=== PATIENT | female | born 1965 | race Caucasian/White ===

== ENCOUNTER 2024-07-17 14:26 | Emergency (ER) | payer OTHER, SELFPAY ==
[2024-07-17 14:27] VITALS: BP 142/85
[2024-07-17 15:08] VITALS: BP 131/82
[2024-07-17 15:12] VITALS: BMI 23.5
--- NOTE | 2024-07-17 15:17 | ED.GENMED ---
History of Present Illness
General
Chief Complaint: DVT/Possible Blood Clot
Source: patient
Exam Limitations: none
Time Seen by Provider: 07/17/24 15:08
History of Present Illness
History of Present Illness:
58 year old female presents with pain to left left ongoing for several weeks. 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 She denies chest pain or shortness of breath. Not currently anticoagulated. No fevers or
chills. NO other complaints at this time.
Past History
Past History
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
ED Past Surgical History:
Social History
Tobacco: Non-smoker
Alcohol: None
Drug: None
Personal:
Living: with family
Employment: Employed
Family History
Family History: Other
Phy Exam
Physical Exam
Physical Exam:
General: Well appearing female NAD
HEENT: NC/AT
heart: RRR, no murmurs
Lungs; CTA
Ext: Tenderness noted to the distal medial left monge just above the medial malleolus with overlying ecchymosis with contusion versus hematoma. There is also swelling noted in the same area on the right leg. She has palpable dorsal pulses to both
feet. No calf tenderness.
Skin is warm without erythema
Course
Orders/Labs/Results
Orders:
Orders
07/17/24 15:17
US Periph Venous LOWER Ext Levi Urgent
Reason For Exam: pain AND SWELLING
Vital Signs
Initial and Last Documented VS:
Initial Vital Signs
Temp Pulse Resp BP Pulse Ox
98.7 F 85 16 142/85 99
07/17/24 14:27 07/17/24 14:27 07/17/24 14:27 07/17/24 14:27 07/17/24 14:27
Last Documented Vital Signs
Temp Pulse Resp BP Pulse Ox
98.7 F 69 15 131/82 99
07/17/24 14:27 07/17/24 15:30 07/17/24 15:30 07/17/24 15:08 07/17/24 15:30
MDM/Problems Addressed
Differential Diagnosis Includes:
Bilateral leg swelling and discomfort. She looks like she has a hematoma to the left leg we will order ultrasound to evaluate for DVTs given her history of DVTs. Do not suspect cellulitis.
*Critical Care Note
Total Time (30-74mins, 75-104mins- exclusive of procedures): Not Applicable
Update Note
Update Note:
Ultrasounds negative for DVT bilaterally. Patient reassured. I suspect she has a contusion to the left distal monge. Reassured patient. Stable for discharge
ED Attending Note
-
Portions of this chart may have been created with voice recognition software.� Occasional wrong word or��sound alike� substitutions may have occurred due to the inherent limitations of voice recognition software.
Discharge Plan
Departure
Patient Disposition: Home (Routine Discharge)
Date of Disposition: 07/17/24
Time of Disposition: 17:01
Patient with high blood pressure during this ER visit?: No
Discharge Problem:
Contusion
Instructions: Contusion
Prescriptions:
No Action
No Current Medications
rivaroxaban [Xarelto] 15 MG tablet
15 mg PO BID Qty: 42 0RF
Referrals:
Philip Liu MD [Family Provider] -
Activity Restrictions/Additional Instructions:
You came here for concern for potential blood clot in your legs. The ultrasounds were negative for any blood clots. We suspect you may have contusion to the left leg. You may use ibuprofen or Tylenol for pain. Return here if worse otherwise
follow-up with your family doctor
Interventions
Interventions:
*Risk Screen - Suicide Last Done: 07/17/24 14:27
*General Assessment Last Done: 07/17/24 14:27
*Neglect/Abuse Screening Last Done: 07/17/24 14:27
ED- Fall Risk Assessment Last Done: 07/17/24 15:12
*ED COVID-19 Vaccine History Last Done: 07/17/24 14:27
ED- Cardiac Assessment Last Done: 07/17/24 15:12
ED- Pulmonary Assessment Last Done: 07/17/24 15:12
ED-Peripheral Vascular Assessment Last Done: 07/17/24 15:12
ED-Skin Assessment Last Done: 07/17/24 15:12
Discharge Date and Time
Print Language: SLOVENIAN
== END 2024-07-17 17:16 | disposition home or self-care (01) ==
LOC: EMR 14:26
PROVIDERS: EMERGENCY PHYSICIAN Emergency Medicine; FAMILY PHYSICIAN Internal Medicine
DX: S80.12XA Contusion of left lower leg, initial encounter (principal); X58.XXXA Exposure to other specified factors, initial encounter; Z86.718 Personal history of other venous thrombosis and embolism
CPT/HCPCS: 99284; 93970

== ENCOUNTER 2024-09-05 15:23 | Emergency (ER) | payer OTHER, SELFPAY ==
[2024-09-05 15:30] VITALS: BP 135/84
[2024-09-05 18:34] VITALS: BP 119/78
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
== END 2024-09-05 18:35 | disposition home or self-care (01) ==
LOC: EMR 15:23
PROVIDERS: EMERGENCY PHYSICIAN Emergency Medicine; FAMILY PHYSICIAN Internal Medicine
DX: S80.12XA Contusion of left lower leg, initial encounter (principal); S80.11XA Contusion of right lower leg, initial encounter; S40.012A Contusion of left shoulder, initial encounter; V89.2XXA Person injured in unspecified motor-vehicle accident, traffic, initial encounter
CPT/HCPCS: 99284; 93970

== ENCOUNTER 2024-09-12 16:36 | Emergency (ER) | payer OTHER, SELFPAY ==
[2024-09-12 16:38] VITALS: BP 145/96
[2024-09-12 20:18] VITALS: BP 112/72
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
== END 2024-09-12 21:30 | disposition home or self-care (01) ==
LOC: EMR 16:36
PROVIDERS: EMERGENCY PHYSICIAN Emergency Medicine; FAMILY PHYSICIAN Internal Medicine
DX: M79.661 Pain in right lower leg (principal)
CPT/HCPCS: 99284; 93971